=== PATIENT | female | born 1940 | race Caucasian/White ===

== ENCOUNTER → 2017-03-08 | Outpatient (CLI) | payer MEDICARE, BC ==
--- NOTE | 2017-03-08 09:28 | MM ---
Reason for exam: follow-up at short interval from prior study. Last mammogram was performed 6 months ago. History: Patient is postmenopausal. Family history of premenopausal breast cancer in daughter at age 40, breast cancer in cousin, and breast cancer in cousin at age 50. Benign left US cyst aspiration of the left breast, September 07, 2006. Taking estrogen for 24 years 6 months. Physical Findings: Nurse did not find any significant physical abnormalities on exam. MG 3D Diag Mammo W/Cad LT CC and MLO view(s) were taken of the left breast. Prior study comparison: September 06, 2016, bilateral MG 3d screening mammo w/cad. September 03, 2015, bilateral MG 3d screening mammo w/cad. The breast tissue is extremely dense which could obscure a lesion on mammography. Finding: There are typically benign calcifications in the left breast. No significant changes in finding since September 06, 2016 and September 03, 2015. These results were verbally communicated with the patient and result sheet given to the patient on 03/08/17. ASSESSMENT: Benign, BI-RAD 2 RECOMMENDATION: Return to routine screening mammogram schedule for both breasts. Back on schedule.
== END | disposition home or self-care (01) ==
LOC: RADMAMWWP 08:06
PROVIDERS: ATTEND Obstetrics & Gynecology
DX: R92.8 Other abnormal and inconclusive findings on diagnostic imaging of breast (principal)
CPT/HCPCS: G0206; G0279

== ENCOUNTER → 2017-09-21 | Outpatient (CLI) | payer MEDICARE, BC ==
--- NOTE | 2017-09-25 09:42 | MM ---
Reason for exam: screening (asymptomatic). Last mammogram was performed 6 months ago. History: Patient is postmenopausal. Family history of premenopausal breast cancer in daughter at age 40, breast cancer in cousin, and breast cancer in cousin at age 50. Benign left US cyst aspiration of the left breast, September 07, 2006. Taking estrogen for 24 years 6 months. Physical Findings: A clinical breast exam by your physician is recommended on an annual basis and results should be correlated with mammographic findings. MG 3D Screening Mammo W/Cad Bilateral CC and MLO view(s) were taken. Prior study comparison: March 08, 2017, left breast MG 3d diag mammo w/cad LT. September 06, 2016, bilateral MG 3d screening mammo w/cad. The breast tissue is heterogeneously dense. This may lower the sensitivity of mammography. There is chronic nodularity bilaterally. There is no dominant lesion. No significant changes when compared with prior studies. ASSESSMENT: Benign, BI-RAD 2 RECOMMENDATION: Routine screening mammogram of both breasts in 1 year.
== END | disposition home or self-care (01) ==
LOC: RADMAMWWP 08:22
PROVIDERS: ATTEND Obstetrics & Gynecology
DX: Z12.31 Encounter for screening mammogram for malignant neoplasm of breast (principal); Z80.3 Family history of malignant neoplasm of breast
CPT/HCPCS: 77063; G0202

== ENCOUNTER → 2018-10-07 | Outpatient (CLI) | payer MEDICARE, BC ==
--- NOTE | 2018-10-07 10:57 | BD ---
EXAMINATION TYPE: Axial Bone Density DATE OF EXAM: 10/07/2018 COMPARISON: 12/03/2014 CLINICAL HISTORY: Postmenopausal female. Osteoporosis screening. Height: 65.5 IN Weight: 117 LBS FRAX RISK QUESTIONS: Secondary Osteoporosis: 3. Menopause before 45: YES TOTAL HYST AGE 45 RISK FACTORS HISTORY OF: Active: YES Postmenopausal woman: AGE 45 Take estrogen and/or progesterone medications: NOT NOW How long: TOOK FROM AGE 45 - 69 MEDICATIONS: Thyroid Medications: YES Which medication: Levothyroxine How Lon YEARS Additional Medications: CALCIUM, VIT D, LEVOTHYROXINE, VIT B, VIT C, EXAM MEASUREMENTS: Bone mineral densitometry was performed using the Tapactive System. Bone mineral density as measured about the Lumbar spine is: ----- L1-L4(G/cm2): 1.095 T Score Values are as follows: ----- L2: -0.5 ----- L3: -0.3 ----- L4: -0.9 ----- L1-L4: -0.7 Bone mineral density has: Decreased -1.1% since study of: 12/03/2014 Bone mineral density about the R hip (g/cm2): 0.839 Bone mineral density about the L hip (g/cm2): 0.847 T Score values are as follows: -----R Neck: -1.4 -----L Neck: -1.4 -----R Total: -1.0 -----L Total: -1.3 Bone mineral density has: Decreased -0.3% since study of: 12/03/2014 IMPRESSION: Osteopenia (T Score between -2.5 and -1). There is slightly increased risk of fracture and the patient may be considered for treatment. Re-Screen 2-5 years. NOTE: T-SCORE=SD OF THE YOUNG ADULT MEAN.
--- NOTE | 2018-10-12 09:15 | MM ---
Reason for exam: screening (asymptomatic). Last mammogram was performed 1 year and 1 month ago. History: Patient is postmenopausal. Family history of premenopausal breast cancer in daughter at age 40, breast cancer in cousin, and breast cancer in cousin at age 50. Benign left US cyst aspiration of the left breast, September 07, 2006. Taking estrogen for 24 years 6 months. MG 3D Screening Mammo W/Cad Bilateral CC and MLO view(s) were taken. Prior study comparison: September 21, 2017, bilateral MG 3d screening mammo w/cad. March 08, 2017, left breast MG 3d diag mammo w/cad LT. The breast tissue is extremely dense which could obscure a lesion on mammography. No suspicious abnormality. No significant changes when compared with prior studies. ASSESSMENT: Negative, BI-RAD 1 RECOMMENDATION: Routine screening mammogram of both breasts in 1 year.
== END | disposition home or self-care (01) ==
LOC: RADMAMWWP 07:23
PROVIDERS: ATTEND Obstetrics & Gynecology
DX: Z12.31 Encounter for screening mammogram for malignant neoplasm of breast (principal); M85.80 Other specified disorders of bone density and structure, unspecified site; N95.1 Menopausal and female climacteric states
CPT/HCPCS: 77063; 77067; 77080

== ENCOUNTER → 2019-11-13 | Outpatient (CLI) | payer MEDICARE, BC ==
--- NOTE | 2019-11-14 09:48 | MM ---
Reason for exam: screening (asymptomatic). Last mammogram was performed 1 year and 1 month ago. History: Patient is postmenopausal. Family history of premenopausal breast cancer in daughter at age 40, breast cancer in maternal cousin at age 60, and breast cancer in cousin at age 50. Benign left US cyst aspiration of the left breast, September 07, 2006. Taking estrogen for 24 years 6 months. Physical Findings: A clinical breast exam by your physician is recommended on an annual basis and results should be correlated with mammographic findings. MG 3D Screening Mammo W/Cad Bilateral CC and MLO view(s) were taken. XCCL view(s) were taken of the left breast. Prior study comparison: October 07, 2018, bilateral MG 3d screening mammo w/cad. September 21, 2017, bilateral MG 3d screening mammo w/cad. The breast tissue is heterogeneously dense. This may lower the sensitivity of mammography. Increasing microcalcifications upper outer right breast. ASSESSMENT: Incomplete: need additional imaging evaluation, BI-RAD 0 RECOMMENDATION: Special view mammogram of the right breast. [facility] will attempt to contact patient to return for supplemental views.
== END | disposition home or self-care (01) ==
LOC: RADMAMWWP 09:15
PROVIDERS: ATTEND Obstetrics & Gynecology
DX: Z12.31 Encounter for screening mammogram for malignant neoplasm of breast (principal)
CPT/HCPCS: 77063; 77067

== ENCOUNTER → 2019-11-18 | Outpatient (CLI) | payer MEDICARE, BC ==
--- NOTE | 2019-11-18 11:18 | MM ---
Reason for exam: additional evaluation requested from abnormal screening. Last mammogram was performed less than 1 month ago. History: Patient is postmenopausal. Family history of premenopausal breast cancer in daughter at age 40, breast cancer in maternal cousin at age 60, and breast cancer in cousin at age 50. Benign left US cyst aspiration of the left breast, September 07, 2006. Taking estrogen for 24 years 6 months. Physical Findings: Nurse did not find any significant physical abnormalities on exam. MG 3D Work Up W/Cad RT CC with magnification, LM with magnification, and LM view(s) were taken of the right breast. Prior study comparison: November 13, 2019, bilateral MG 3d screening mammo w/cad. October 07, 2018, bilateral MG 3d screening mammo w/cad. September 21, 2017, bilateral MG 3d screening mammo w/cad. March 08, 2017, left breast MG 3d diag mammo w/cad LT. September 06, 2016, bilateral MG 3d screening mammo w/cad. September 03, 2015, bilateral MG 3d screening mammo w/cad. The breast tissue is heterogeneously dense. This may lower the sensitivity of mammography. There is a 4mm group of right upper outer quadrant calcifications at posterior depth, similar to prior exams compared back to 2014. These also mostly layer on the ML view. These results were verbally communicated with the patient and result sheet given to the patient on 11/18/19. ASSESSMENT: Benign, BI-RAD 2 RECOMMENDATION: Return to routine screening mammogram schedule for both breasts.
== END | disposition home or self-care (01) ==
LOC: RADMAMWWP 10:13
PROVIDERS: ATTEND Obstetrics & Gynecology
DX: R92.8 Other abnormal and inconclusive findings on diagnostic imaging of breast (principal)
CPT/HCPCS: 77065; G0279; 77061

== ENCOUNTER → 2020-12-14 | Outpatient (CLI) | payer MEDICARE, BC ==
--- NOTE | 2020-12-14 14:31 | MR ---
EXAMINATION TYPE: MR shoulder LT wo con DATE OF EXAM: 12/14/2020 COMPARISON: Plain film 12/07/2020 HISTORY: Left shoulder pain for 2 months, trauma. TECHNIQUE: Multiplanar, multisequence imaging of the left shoulder is performed without contrast. FINDINGS: Rotator Cuff: At the anterior aspect of the supraspinatus tendon insertion there is abnormal increase d signal present suggesting a partial full-thickness tear, coronal image #8, axial image #16 Acromioclavicular Joint: There is fluid signal in the subacromial subdeltoid bursa. Distal acromion i s downturned. Joint thought to be intact. Glenohumeral Joint: Intact Labrum: The labrum appears grossly intact given limitation of non-arthrogram study. Biceps Tendon: There is some fluid signal along the long head of biceps tendon which shows a normal p osition in the bicipital groove Bone marrow signal: Pseudocysts are present within the humeral head. Other: Small joint effusion. IMPRESSION: Partial full-thickness tear the rotator cuff
== END | disposition home or self-care (01) ==
LOC: RADMRIMAIN 11:05
PROVIDERS: ATTEND Orthopaedic Surgery
DX: M75.111 Incomplete rotator cuff tear or rupture of right shoulder, not specified as traumatic (principal)

== ENCOUNTER → 2020-12-21 | Outpatient (CLI) | payer MEDICARE, BC ==
--- NOTE | 2020-12-21 16:48 | BD ---
EXAMINATION TYPE: Axial Bone Density DATE OF EXAM: 12/21/2020 COMPARISON: 10/07/2018 CLINICAL HISTORY: Postmenopausal screening Height: 65.2 IN Weight: 118 LBS FRAX RISK QUESTIONS: Secondary Osteoporosis: 3. Menopause before 45: TOTAL HYST AGE 45 RISK FACTORS HISTORY OF: Active: YES Diet low in dairy products/other sources of calcium: YES Postmenopausal woman: TOTAL HYST AGE 45 Take estrogen and/or progesterone medications: YES How long: SINCE AGE 45 MEDICATIONS: Thyroid Medications: YES Which medication: ARMOUR How Lon YEARS Additional Medications: CALCIUM, VIT D, ARMOUR THYROID, GINKO, VIT C, FISH OIL,VIT B COMPLEX, MSM EXAM MEASUREMENTS: Bone mineral densitometry was performed using the [employer]erral[employer]IM System. Bone mineral density as measured about the Lumbar spine is: ----- L1-L4(G/cm2): 1.094 T Score Values are as follows: ----- L2: -0.5 ----- L3: -0.3 ----- L4: -1.0 ----- L1-L4: -0.7 Bone mineral density has: Increased 0.1% since study of: 10/07/2018 Bone mineral density about the R hip (g/cm2): 0.851 Bone mineral density about the L hip (g/cm2): 0.864 T Score values are as follows: -----R Neck: -1.3 -----L Neck: -1.3 -----R Total: -1.1 -----L Total: -1.3 Bone mineral density has: Decreased -1.6% since study of: 10/07/2018 IMPRESSION: Osteopenia (T Score between -2.5 and -1). There is slightly increased risk of fracture and the patient may be considered for treatment. Re-Screen 2-5 years. NOTE: T-SCORE=SD OF THE YOUNG ADULT MEAN.
--- NOTE | 2020-12-23 11:50 | MM ---
Reason for exam: screening (asymptomatic). Last mammogram was performed 1 year and 1 month ago. History: Patient is postmenopausal. Family history of premenopausal breast cancer in daughter at age 40, breast cancer in maternal cousin at age 60, and breast cancer in cousin at age 50. Benign left US cyst aspiration of the left breast, September 07, 2006. Taking estrogen for 24 years 6 months. Physical Findings: A clinical breast exam by your physician is recommended on an annual basis and results should be correlated with mammographic findings. MG 3D Screening Mammo W/Cad Bilateral CC and MLO view(s) were taken. Prior study comparison: November 18, 2019, right breast MG 3d work up w/cad RT. November 13, 2019, bilateral MG 3d screening mammo w/cad. The breast tissue is heterogeneously dense. This may lower the sensitivity of mammography. Finding: There are round, segmental calcifications in the upper outer quadrant, posterior position of the right breast. No significant changes in finding since November 18, 2019 and November 13, 2019. ASSESSMENT: Benign, BI-RAD 2 RECOMMENDATION: Routine screening mammogram of both breasts in 1 year.
== END | disposition home or self-care (01) ==
LOC: RADMAMWWP 12:36
PROVIDERS: ATTEND Obstetrics & Gynecology
DX: Z12.31 Encounter for screening mammogram for malignant neoplasm of breast (principal); M85.9 Disorder of bone density and structure, unspecified
CPT/HCPCS: 77063; 77067; 77080

== ENCOUNTER → 2021-04-19 | Outpatient (CLI) | payer MEDICARE, BC ==
[2021-04-19 11:37] LABS: Potassium 4.9 mmol/L (3.5-5.1)
[2021-04-19 13:17] LABS: Basophils # (A) 0.1 k/uL (0-0.2); Basophils % (A) 1 %; Eosinophils # (A) 0.1 k/uL (0-0.7); Eosinophils % (A) 2 %; HCT 43.5 % (34.0-46.0); HGB 14.3 gm/dL (11.4-16.0); Lymphocytes % (A) 26 %; MCH 31.9 pg (25.0-35.0); MCV 96.5 fL (80.0-100.0); Mean Platelet Volume 7.9; Monocytes # (A) 0.8 k/uL (0-1.0); Monocytes % (A) 10 %; Neutrophils # (A) 4.6 k/uL (1.3-7.7); Neutrophils % (A) 59 %; Platelet Count 242 k/uL (150-450); RDW 13.2 % (11.5-15.5); WBC 7.9 k/uL (3.8-10.6)
== END | disposition home or self-care (01) ==
LOC: LABPAT 10:12
PROVIDERS: ATTEND Orthopaedic Surgery
DX: Z01.812 Encounter for preprocedural laboratory examination (principal); M75.42 Impingement syndrome of left shoulder
CPT/HCPCS: 80051; 85025

== ENCOUNTER 2021-05-05 05:44 | Day surgery (SDC) | payer MEDICARE, BC ==
--- NOTE | 2021-05-05 01:05 | HP ---
HISTORY AND PHYSICAL REASON FOR ADMISSION: Surgery scheduled 05/05/2021 HISTORY OF PRESENT ILLNESS: Brendan Evans is an 81-year-old patient seen with progressive left shoulder pain. We discussed options for treatment. She elected to proceed with arthroscopy. Consent regarding the procedure was obtained. Medical clearance was provided by Dr. Carbone. PAST MEDICAL HISTORY: Hypothyroidism. PAST SURGICAL HISTORY: Appendectomy, cataract surgery, hysterectomy, right shoulder arthroscopy. MEDICATIONS: [place] Thyroid, vitamins. ALLERGIES: SULFA. SOCIAL HISTORY: She denies tobacco use. PHYSICAL EXAMINATION: Evaluation of the left shoulder flexion 130, abduction 120, external rotation is 35 with pain, weakness. Tenderness along the anterolateral acromion and rotator cuff insertion site. Impingement positive at 90. Drop-arm sign is positive. Distal neurovascular exam is intact. RADIOGRAPHS: Left shoulder radiographs revealed a type 2 acromion and cystic changes of the greater tuberosity. Left shoulder MRI revealed a rotator cuff tendon tear. IMPRESSION: 1. Left shoulder impingement with rotator cuff tear. 2. Hypothyroidism. PLAN: Left shoulder arthroscopy with subacromial decompression, arthroscopic rotator cuff repair and debridement. Surgery scheduled for 05/05/2021. MMODL / IJN: [id number] /
[2021-05-05] MEDS ORDERED: DEXAMETHASONE SOD PHOSPHATE 4 MG/ML 1 ML VIAL IV ONE (06:09)
[2021-05-05] MEDS ORDERED: LACTATED RINGERS 1,000 ML IV SCH (06:09)
[2021-05-05] MEDS ORDERED: LIDOCAINE 1% (10MG/ML) FOR IV START INTRADERMA PRN (06:09)
[2021-05-05] MEDS ORDERED: HYDROmorphone 0.5 MG/0.5 ML SYRINGE IVP PRN (06:09)
[2021-05-05] MEDS ORDERED: MIDAZOLAM 2 MG/2 ML VIAL IV PRN (06:09)
[2021-05-05] MEDS ORDERED: ONDANSETRON 4 MG/2 ML VIAL ONE (06:26)
[2021-05-05 07:19] VITALS: RESP 16
[2021-05-05] MEDS ORDERED: DEXAMETHASONE SOD PHOSPHATE 4 MG/ML 1 ML VIAL ONE (07:20)
[2021-05-05] MEDS ORDERED: PROPOFOL 10 MG/ML 20 ML VIAL IV ONE (07:20)
[2021-05-05] MEDS ORDERED: ROPIVACAINE 5 MG/ML 30 ML VIAL ONE (07:20)
[2021-05-05] MEDS ORDERED: fentaNYL (PF) 50 MCG/ML 2 ML AMP ONE (07:20)
[2021-05-05] MEDS ORDERED: ePHEDrine SULFATE/0.9% NACL/PF 50 MG/5 ML SYRINGE IV ONE (07:20)
[2021-05-05] MEDS ORDERED: LIDOCAINE 1% INJ 10MG/ML (20 ML MDV) ONE (07:20)
[2021-05-05 08:51] VITALS: TEMP 97
--- NOTE | 2021-05-05 08:52 | P.ANPRN ---
Procedure Note - Anesthesia - Nerve Block Performed Left Interscalene Single Time Out Performed: Yes ([id number]) Date of Procedure: 05/05/21 Procedure Start Time: :58 Procedure Stop Time: 07:07 Location of Patient: PreOp Indication: Acute Post-Operative Pain, Dx/Pain Location (Left shoulder), Requested by Surgeon Specifically requested for management of pain by DrEvie: Vern Iqbal Sedation Type: Sedate with meaningful contact maintained Preparation: Sterile Prep Position: Supine Catheter: None Needle Types: Pajunk Needle Gauge: 21 Ultrasound used to visualize needle placement: Yes Ultrasound used to observe medication spread: Yes Injectate: 0.5% Ropivacaine (see comment for volume) (30 cc and decadron 4 mg) Blood Aspirated: No Pain Paresthesia on Injection Noted: No Resistance on Injection: Normal Image Stored and Saved: Yes Events: Uneventful and Well Tolerated
--- NOTE | 2021-05-05 08:54 | P.OP ---
Date of Procedure: 05/05/21 Preoperative Diagnosis: Left shoulder impingement Postoperative Diagnosis: 1. Left shoulder rotator cuff tear 2. Left shoulder impingement 3. Left shoulder acromioclavicular joint osteoarthritis Procedure(s) Performed: 1. Left shoulder arthroscopic rotator cuff repair 2. Left shoulder arthroscopic subacromial decompression 3. Left shoulder arthroscopic Cameron procedure Anesthesia: GETA, regional (Interscalene block) Surgeon: Vern Iqbal [employer] Operator #1: Michael Murray Estimated Blood Loss (ml): 7 Pathology: none sent Condition: stable Disposition: PACU Indications for Procedure: 81-year-old patient seen with progressive left shoulder pain. After having treatment options discussed, she elected to proceed with arthroscopy. Operative Findings: See description of procedure Description of Procedure: Patient underwent an interscalene block by department of anesthesia. The patient was then taken to the operative suite. The patient underwent a general anesthetic by the department of anesthesia. The patient was placed into a lateral position and secured. There was appropriate padding of the bony prominence. Left shoulder was then prepped and draped in normal sterile orth opedic fashion. We placed the extremity in 10 pounds of longitudinal traction. A posterior incision was now made for a posterior working portal site. The trocar and cannula were inserted into the glenohumeral joint. Arthroscopy was initiated. Spinal needle was now inserted anteriorly, to ascertain the anterior working portal site. An incision was now made in that area, a trocar was inserted followed by a probe. I probed the labrum and we noted some mild superficial fraying superiorly. The biceps tendon was probed and stable. There were mild grade 1 chondromalacia changes. I debrided that area superficial fraying of labrum. Again probed the area and it was stable. Instruments removed from glenohumeral joint. Utilizing the posterior working portal site, the trocar and cannula were in serted into the subacromial space. Arthroscopy initiated. I made an incision 2 fingerbreadths lateral to the acromion. I introduced my trocar followed by my ArthroCare ablator. I now began ablating thick subacromial bursal tissue, which exposed the undersurface of the anterior acromion. There was diminished subacromial space. There was a very prominent anterior acromion. A motorized bur was introduced and a subacromial decompression was performed. I also excised some osteophytes off the inferior aspect of the distal clavicle. The AC joint was visualized and noted to be fairly arthritic. The motorized bur was introduced in the anterior portal site and a Cameron procedure was performed without difficulty, decompressing the AC joint nicely. I turned my attention to the rotator cuff. I noted significant partial tearing along the distal supraspinatus. I probed the area and found a full-thickness perforation present. I debrided the margins getting down to stable tendon tissue. The defe ct measured 1 cm it was freely mobile over the footprint. I introduced my motorized bur and abraded the footprint area, getting some petechial bleeding. I passed 2 everted mattress sutures through good bites of rotator cuff tendon with the assistance of Miguel HUBBARD. I now punched 2 holes in the footprint for insertion of anchor. All 4 limbs of suture were passed through the eyelet of a 4.75 Arthrex swivel lock anchor. I placed the eyelet into the pre-punched hole. I held it in position while Miguel HUBBARD tensioned all the sutures and deployed the anchor with good fixation noted. All residual suture limbs were now clipped. We had good compression of the tendon along the entire footprint. Instruments now removed from the portal sites. All portal sites were approximated with nylon suture. Sterile dressings were applied followed by a shoulder sling. Michael HUBBARD assisted in this case. The patient was awakened, transferred to a bed, and taken to recovery in stable condition.
[2021-05-05 10:13] VITALS: BP 155/64; PULSE 78
== END 2021-05-05 10:54 | disposition home or self-care (01) ==
LOC: OR 05:44
PROVIDERS: ATTEND Orthopaedic Surgery
DX: M75.102 Unspecified rotator cuff tear or rupture of left shoulder, not specified as traumatic (principal); M19.012 Primary osteoarthritis, left shoulder; E03.9 Hypothyroidism, unspecified; Z88.2 Allergy status to sulfonamides; Z79.899 Other long term (current) drug therapy
CPT/HCPCS: 64415; 76942; 29827; 29826; C1713; J2250; J1100; J0690; J2405; J2001; J3010; J2795; J2704

== ENCOUNTER → 2022-01-10 | Outpatient (CLI) | payer MEDICARE, BC ==
--- NOTE | 2022-01-11 12:50 | MM ---
Reason for exam: screening (asymptomatic). Last mammogram was performed 1 year and 1 month ago. History: Patient is postmenopausal. Family history of premenopausal breast cancer in daughter at age 40, breast cancer in maternal cousin at age 60, and breast cancer in cousin at age 50. Benign left US cyst aspiration of the left breast, September 07, 2006. Taking estrogen for 24 years 6 months. Physical Findings: A clinical breast exam by your physician is recommended on an annual basis and results should be correlated with mammographic findings. MG 3D Screening Mammo W/Cad Bilateral CC and MLO view(s) were taken. Prior study comparison: December 21, 2020, bilateral MG 3d screening mammo w/cad. November 18, 2019, right breast MG 3d work up w/cad RT. The breast tissue is extremely dense which could obscure a lesion on mammography. Finding: There are coarse heterogeneous, grouped/clustered calcifications in the upper outer quadrant, posterior position of the right breast. New finding since December 21, 2020 and November 18, 2019. ASSESSMENT: Incomplete: need additional imaging evaluation, BI-RAD 0 RECOMMENDATION: Special view mammogram of the right breast. [facility] will attempt to contact patient to return for supplemental views.
== END | disposition home or self-care (01) ==
LOC: RADMAMWWP 09:55
PROVIDERS: ATTEND Obstetrics & Gynecology
DX: Z12.31 Encounter for screening mammogram for malignant neoplasm of breast (principal); Z85.3 Personal history of malignant neoplasm of breast; Z80.3 Family history of malignant neoplasm of breast; Z78.0 Asymptomatic menopausal state
CPT/HCPCS: 77063; 77067

== ENCOUNTER → 2022-01-13 | Outpatient (CLI) | payer MEDICARE, BC ==
--- NOTE | 2022-01-13 11:12 | MM ---
Reason for exam: additional evaluation requested from abnormal screening. Last mammogram was performed less than 1 month ago. History: Patient is postmenopausal. Family history of premenopausal breast cancer in daughter at age 40, breast cancer in maternal cousin at age 60, and breast cancer in cousin at age 50. Benign left US cyst aspiration of the left breast, September 07, 2006. Taking estrogen for 24 years 6 months. Physical Findings: A clinical breast exam by your physician is recommended on an annual basis and results should be correlated with mammographic findings. MG 3D Work Up W/Cad RT CC with magnification, LM with magnification, XCCL, and LM view(s) were taken of the right breast. Prior study comparison: January 10, 2022, bilateral MG 3d screening mammo w/cad. December 21, 2020, bilateral MG 3d screening mammo w/cad. Finding: There are intermediate concern, suspicious heterogeneous, grouped/clustered calcifications in the upper outer quadrant, middle position of the right breast. New finding since December 21, 2020. Results were given to the patient verbally at the time of the exam. ASSESSMENT: Suspicious, BI-RAD 4 RECOMMENDATION: Stereotactic core biopsy of the right breast. Called Dr. Sesay's office with mammographic findings. Patient requests to speak with Dr. Sesay prior to scheduling biopsy. PRELIMINARY REPORT CALLED AND FAXED TO DR. SESAY ON 01/13/22.
== END | disposition home or self-care (01) ==
LOC: RADMAMWWP 07:33
PROVIDERS: ATTEND Obstetrics & Gynecology
DX: R92.8 Other abnormal and inconclusive findings on diagnostic imaging of breast (principal); Z78.0 Asymptomatic menopausal state; Z80.3 Family history of malignant neoplasm of breast
CPT/HCPCS: 77065; G0279; 77061